=== PATIENT | male | born 1970 | race Caucasian/White ===

== ENCOUNTER 2017-09-19 16:32 | Emergency (ER) | payer OTHER ==
[~2017-09-19] VITALS: Ht 175.3 cm; Wt 88.4 kg
[2017-09-19 16:36] VITALS: BP 152/90
[2017-09-19] MEDS ORDERED: OXYcodone/APAP 5/325MG TABLET ONE (17:07)
[2017-09-19] MEDS ORDERED: DIAZEPAM 5 MG TABLET ONE (17:08)
[2017-09-19] MEDS ORDERED: KETOROLAC 30 MG/1 ML ONE (17:08)
[2017-09-19] MEDS ORDERED: KETOROLAC 30 MG/1 ML IM ONE (17:30)
[2017-09-19] MEDS ORDERED: OXYcodone/APAP 5/325MG TABLET PO ONE (17:30)
[2017-09-19] MEDS ORDERED: DIAZEPAM 5 MG TABLET PO ONE (17:30)
== END 2017-09-19 18:38 | disposition home or self-care (01) ==
LOC: ED 17:55
DX: S16.1XXA Strain of muscle, fascia and tendon at neck level, initial encounter (principal); S46.812A Strain of other muscles, fascia and tendons at shoulder and upper arm level, left arm, initial encounter; X58.XXXA Exposure to other specified factors, initial encounter; Y93.89 Activity, other specified; Y99.8 Other external cause status; Y92.89 Other specified places as the place of occurrence of the external cause
CPT/HCPCS: 72050; 96372; 99284; J1885

== ENCOUNTER 2019-10-05 16:03 | Emergency (ER) | payer OTHER ==
[~2019-10-05] VITALS: Ht 175.3 cm; Wt 85.0 kg
[2019-10-05 17:23] VITALS: BP 121/84
--- NOTE | 2019-10-05 17:25 | NUR ---
PT REPORT FROM MCKAYLA NORRIS RN. PT CARE TO BE ASSUMED.
--- NOTE | 2019-10-05 17:28 | NUR ---
THIS IS A 49 YO MALE WHO PRESENTS TO THE ER C/O MID LOW BACK PAIN WRAPPING AROUND TO FRONT. PT AO X 4. SKIN PWD. RESP EVEN AND UNLABORED. PT REFUSES OFFER OF PAIN MEDICATION AT THIS TIME. WILL STARK WAS AT BEDSIDE FOR EVAL. PT ON CONT BP AND O2 MONITORS. PT AWARE WE ARE WAITING FOR LAB/IMAGING RESULTS. REPORT TO PRIMARY RN ASHLEY WHO ASSUMED CARE OF PT.
--- NOTE | 2019-10-05 17:39 | NUR ---
PT C/O PAIN IN MID-BACK, RADIATED TO LATERAL RIBS. DENIES HEAVY LIFTING, TWISTING, TRAUMA. STARTED 1 WEEK AGO, AFTER FLU-LIKE SX (COUGH, LOW-GRADE FEVER, BODY ACHES, FATIGUE). NO PAIN MED TAKEN TODAY. RESP CURRENTLY UNLABORED, SPEECH CLEAR, SKIN WNL.
[2019-10-05] MEDS ORDERED: FLUO20TA25 PO (17:44)
[2019-10-05] MEDS ORDERED: LISI-424 PO (17:44)
[2019-10-05 18:01] LABS: ALANINE AMINOTRANSFERASE 37 U/L (12-78); ANION GAP 3 mmol/L (5-15); BASOPHILS # (AUTO) 0.03 x10^3/uL (0-0.1); BASOPHILS % (AUTO) 0 % (0-1); CHLORIDE 106 mmol/L (98-107); CREATININE 1.17 mg/dL (0.7-1.3); EOSINOPHILS % (AUTO) 1 % (1-7); LYMPHOCYTES # (AUTO) 2.31 x10^3/uL (1-3.4); LYMPHOCYTES % (AUTO) 33 % (22-44); MD NO; MEAN CORPUSCULAR HEMOGLOBIN 31.9 pg (27.5-34.5); MEAN CORPUSCULAR HGB CONC 33.7 g/dL (33.2-36.2); MEAN CORPUSCULAR VOLUME 94.4 fL (81-97); MEAN PLATELET VOLUME 8.2 fL (7.4-10.4); MONOCYTES # (AUTO) 0.51 x10^3/uL (0.2-0.8); MONOCYTES % (AUTO) 7 % (2-9); NEUTROPHILS # (AUTO) 4.08 x10^3/uL (1.8-6.8); NEUTROPHILS % (AUTO) 58 % (42-75); PLATELET COUNT 260 x10^3/uL (130-400); RED BLOOD COUNT 5.11 x10^6/uL (4.38-5.82); RED CELL DISTRIBUTION WIDTH 13.5 % (9.4-14.8)
[2019-10-05 18:05] LABS: ALKALINE PHOSPHATASE 63 U/L (45-117); BILIRUBIN,TOTAL 0.6 mg/dL (0.2-1.0); TOTAL PROTEIN 7.4 g/dL (6.4-8.2); TROPONIN I < 0.015 ng/mL (0.000-0.045)
== END 2019-10-05 19:03 | disposition home or self-care (01) ==
LOC: ED 18:20
DX: R07.89 Other chest pain (principal); M54.9 Dorsalgia, unspecified
CPT/HCPCS: 36415; 71046; 80053; 84484; 85025; 93005; 99285